=== PATIENT | male | born 1940 | race Hispanic/Latino ===

== ENCOUNTER 2019-05-06 06:01 | Day surgery (SDC) | payer MEDICARE ==
[2019-05-06 06:51] LABS: Basophils # (Auto) 0.1 K/mm3 (0.0-0.1); Basophils % (Auto) 1.3 % (0.0-1.8); Eosinophils # (Auto) 0.2 K/mm3 (0.0-0.4); Eosinophils % (Auto) 2.6 % (0.0-4.3); Hematocrit 44.3 % (35.5-45.6); Hemoglobin 15.4 gm/dl (11.8-15.2); Lymphocytes # (Auto) 1.8 K/mm3 (1.2-5.4); Mean Corpuscular HGB Conc 35 % (32-34); Mean Corpuscular Volume 90 fl (84-94); Monocytes % (Auto) 10.3 % (0.0-7.3); Platelet Count 230 K/mm3 (140-440); Red Blood Count 4.92 M/mm3 (3.65-5.03); Red Cell Distribution Width 13.9 % (13.2-15.2)
[2019-05-06] MEDS ORDERED: NACL 0.9% 500 ML 500 ML IV SCH (07:00)
[2019-05-06 07:02] LABS: INR 1.03 (0.87-1.13)
[2019-05-06 07:08] LABS: BUN/Creatinine Ratio 18; Blood Urea Nitrogen 16 mg/dL (9-20); Calcium 9.2 mg/dL (8.4-10.2); Hemolysis Index 29
[2019-05-06] MEDS ORDERED: HEPARIN/NS 5000 UNIT/500ML(CATH LAB) 1,000 ML IR ONE (08:20)
[2019-05-06] MEDS ORDERED: CALAN ONE (08:20)
[2019-05-06] MEDS ORDERED: NITROGLYCERIN SYRINGE 0 ML ONE (08:20)
[2019-05-06] MEDS ORDERED: HEPARIN 10,000 UNITS/10 ML ONE (08:20)
[2019-05-06] MEDS ORDERED: VERSED ONE (08:21)
[2019-05-06] MEDS: SUBLIMAZE ONE ×2 (09:25→09:29)
[2019-05-06] MEDS: XYLOCAINE 2% INFILTRATI ONE ×2 (09:27→09:29)
--- NOTE | 2019-05-06 10:34 | Cardiac Catherization Report ---
CARDIAC CATHETERIZATION REPORT REASON FOR STUDY: The patient is a 78-year-old man with coronary artery disease, status post 3-way coronary artery bypass surgery done 11 years ago. He has an indwelling cardiac defibrillator for a severe ischemic cardiomyopathy. During a recent ICD interrogation, he was found to have multiple episodes of ventricular tachycardia and ventricular fibrillation, requiring multiple ICD discharges. He is referred for cardiac catheterization for further assessment of his coronary artery disease, to assess for an ischemic basis for his recurrent ventricular tachycardia and fibrillation. PROCEDURES: 1. Left heart catheterization. 2. Selective left and right coronary angiography. 3. Selective angiography of the left internal mammary artery graft. 4. Selective angiography of the saphenous vein grafts. 5. Left ventricular angiography. 6. Sedation time, start 0927 hours, end 0950 hours. The patient was prepped and draped in a sterile fashion after informed consent. The right femoral artery was entered using Seldinger technique followed by placement of a 6-Sudanese sheath. Selective left and right coronary angiography was performed using #4 right and left Len catheters. The right Len was used for angiography of the saphenous vein grafts. We exchanged for a left internal mammary artery graft for left internal mammary artery graft angiography. The angiography of the left ventricle was performed using a pigtail catheter. The catheters were then removed, sheath removed, and hemostasis achieved using an Angio-Seal device. The patient was returned to the postprocedure unit in stable condition. There were no complications. FINDINGS: HEMODYNAMICS: Left ventricular end-diastolic pressure was 25-30, following coronary angiography. Ascending aortic pressure was 165/79. There was no significant pressure gradient on pullback across the aortic valve. CORONARY ANGIOGRAPHY: Left main coronary artery contained mild luminal irregularities. The left anterior descending artery was completely occluded in its proximal segment. This was a long segment of chronic total occlusion of the proximal LAD. The left internal mammary artery graft to the LAD was patent with good anastomosis to the mid vessel, good distal runoff and good retrograde perfusion of the mid LAD and mid diagonal branches. The circumflex artery was also completely occluded in its proximal to mid segment. This again was a chronic total occlusion. The saphenous vein graft to the obtuse marginal artery was patent with good anastomosis to a large mid obtuse marginal, good distal runoff and good retrograde perfusion of an inferior sub-branch. The saphenous vein graft contained mild atherosclerosis of its proximal segment, but otherwise widely patent. The right coronary artery was a dominant vessel, was also chronically, totally occluded in its distal segment before the posterior descending branch. The saphenous vein graft to the distal right coronary artery was patent with good anastomosis to the mid segment of a medium-sized posterior descending branch, and good retrograde perfusion of the right posterolateral system. The saphenous vein graft was also widely patent with minimal atherosclerosis. The left ventricle was severely dilated. There was severe left ventricular systolic dysfunction, diffuse hypokinesis, left ventricular ejection fraction estimated at 20%. CONCLUSION: 1. Severe 3-vessel coronary artery disease with complete occlusion of the LAD, circumflex and right coronary arteries. 2. Patent left internal mammary artery graft to the LAD. 3. Patent saphenous vein graft to the mid obtuse marginal branch of the circumflex. 4. Patent saphenous vein graft to the distal right coronary artery. 5. Ischemic cardiomyopathy, severe left ventricular systolic dysfunction, ejection fraction 20%. RECOMMENDATION: Medical therapy and risk factor modification. [facility]# [id number] JESUS/LEANA
--- NOTE | 2019-05-06 13:26 | Discharge Summary ---
Short Stay Discharge Plan Weight Bearing Status: Partial Weight Bearing Diet: low fat, low cholesterol, low salt, diabetic Wound: keep clean and dry Special Instructions: no heavy lifting (3 days) Follow up with: LUBA SIMMONS MD [Primary Care Provider] - 7 Days SUNG TAYLOR MD [Staff Physician] - 7 Days Forms: CardCath PCI D/C Instructions
[2019-05-06 13:31] VITALS: BP 128/60
[2019-05-06] MEDS ORDERED: NACL 0.9% 1000 ML 1,000 ML IV SCH (14:00)
== END 2019-05-06 14:00 | disposition home or self-care (01) ==
LOC: CATHLABREC 06:01
PROVIDERS: ATTEND Internal Medicine Cardiovascular Disease
DX: I25.10 Atherosclerotic heart disease of native coronary artery without angina pectoris (principal); I25.5 Ischemic cardiomyopathy; I48.91 Unspecified atrial fibrillation; I10 Essential (primary) hypertension; Z90.49 Acquired absence of other specified parts of digestive tract; Z80.8 Family history of malignant neoplasm of other organs or systems; Z79.82 Long term (current) use of aspirin; Z79.899 Other long term (current) drug therapy; Z79.4 Long term (current) use of insulin; Z87.891 Personal history of nicotine dependence; Z98.890 Other specified postprocedural states; Z98.49 Cataract extraction status, unspecified eye; Z95.1 Presence of aortocoronary bypass graft
CPT/HCPCS: 36415; 80048; 85025; 85610; 85730; 93005; 93010; 93459; 99156; 99157; C1760; J1644; J2250; J3010; J7040; Q9967